=== PATIENT | male | born 1945 | race Caucasian/White ===

== ENCOUNTER 2018-02-03 10:40 | Emergency (ER) | payer OTHER ==
[~2018-02-03] VITALS: Ht 170.2 cm; Wt 63.0 kg
[2018-02-03 13:35] LABS: HEMATOCRIT 43.6 % (38.0-50.0); HEMOGLOBIN 15.4 G/DL (12.5-16.6); MCHC 35.3 G/DL (30.0-36.0); MCV 93.6 FL (86-99); PLATELET COUNT 173 K/uL (156-360); RBC DIS.WIDTH-CV 12.4 % (11.8-14.6); RBC DIS.WIDTH-SD 42.7 % (39-53); RED BLOOD COUNT 4.66 M/uL (4.00-5.50); WHITE BLOOD COUNT 6.2 K/uL (4.1-10.2)
[2018-02-03 13:44] LABS: ALBUMIN 4.2 g/dL (3.2-4.8)
[2018-02-03 13:45] LABS: CHLORIDE 102 mEq/L (99-109); POTASSIUM 4.4 mEq/L (3.7-5.4); SODIUM 137 mEq/L (136-147)
[2018-02-03 13:47] LABS: GLUCOSE 105 mg/dL (70-99); TOTAL PROTEIN 7.4 g/dL (6.4-8.3)
[2018-02-03 13:49] LABS: TOTAL BILIRUBIN 1.7 mg/dL (0.0-1.0)
[2018-02-03 13:50] LABS: ALKALINE PHOSPHATASE 60 IU/L (3-129)
[2018-02-03 13:50] LABS: APPEARANCE CLEAR ((CLEAR)); BILIRUBIN NEGATIVE; BLOOD MODERATE; COLOR YELLOW ((YELLOW)); GLUCOSE (STRIP) NEGATIVE; KETONES NEGATIVE; LEUKOCYTES NEGATIVE; NITRITE NEGATIVE; PROTEIN (STRIP) NEGATIVE; SPECIFIC GRAVITY 1.015 (1.000-1.030); UROBILINOGEN 0.2 MG/DL (0.2-1.0)
[2018-02-03 13:51] LABS: CREATININE 0.9 mg/dL (0.6-1.3); GFR ESTIMATE (CALCULATED) > 59 mL/min/ (58.99-99999)
[2018-02-03 13:52] LABS: AST (GOT) 23 IU/L (2-34); UREA NITROGEN (BUN) 17 mg/dL (9-23)
[2018-02-03 13:54] LABS: ALT (GPT) 29 IU/L (3-49)
[2018-02-03 13:57] LABS: BACTERIA RARE /HPF; EPITHELIAL CELLS RARE /HPF; MUCUS TRACE /LPF; RED BLOOD CELLS 15-20 /HPF (0-5); UCUL ADDED? NO; WHITE BLOOD CELLS 0-5 /HPF (0-5)
[2018-02-03 17:16] VITALS: BP 115/64
== END 2018-02-03 17:17 | disposition home or self-care (01) ==
LOC: EME 10:40
PROVIDERS: Nurse Practitioner Family
DX: R10.31 Right lower quadrant pain (principal); R10.32 Left lower quadrant pain; R16.0 Hepatomegaly, not elsewhere classified; Z85.820 Personal history of malignant melanoma of skin
CPT/HCPCS: 74177; 80053; 81003; 85027; 87651 90; 99281; 99283; J7030

== ENCOUNTER → 2018-06-20 | Outpatient (CLI) | payer OTHER | END | disposition home or self-care (01) | LOC: RAD 12:31 | DX: I67.2 Cerebral atherosclerosis (principal); G31.9 Degenerative disease of nervous system, unspecified | CPT/HCPCS: 70470 ==

== ENCOUNTER → 2018-06-22 | Outpatient (CLI) | payer OTHER | END | disposition home or self-care (01) | LOC: EEG 07:53 | DX: R55 Syncope and collapse (principal) | CPT/HCPCS: 95819 ==